=== PATIENT | female | born 1975 | race Caucasian/White ===

== ENCOUNTER 2016-07-09 18:41 | Emergency (ER) | payer OTHER ==
[2016-07-09 18:49] VITALS: BP 155/73
[2016-07-09] MEDS ORDERED: KETOROLAC 60 MG/2 ML VIAL IM STA (20:24)
--- NOTE | 2016-07-09 20:27 | ED Physician Documentation ---
PD HPI LOWER EXT INJURY - Stated complaint Stated Complaint: R KNEE PAIN - Chief complaint Chief Complaint: Ext Problem - History obtained from History obtained from: Patient - History of Present Illness PD HPI LOW EXT INJURY LOCATION: Right, Knee Timing - details: Gradual onset, Waxing and waning Pain level max: 8 Pain level now: 7 Improved by: Rest Worsened by: Moving, Palpating, Other (walking) Associated symptoms: No: Weakness, Numbness, Tingling, Swelling Contributing factors: No: Prior ortho surgery, Prosthetic joint, Work related Similar symptoms before: Diagnosis (knee pain) - Additional information Additional information: Patient is a 40 yo F with R knee pain for 3 years, gradually worsening over the past few weeks. today stood up and "felt a pop" now has increasing pain. States painful to walk. Took tylenol today. Review of Systems Constitutional: denies: Fever, Chills GI: denies: Nausea, Vomiting : denies: Now EGA Musculoskeletal: denies: Back pain Neurologic: denies: Focal weakness, Numbness PD PAST MEDICAL HISTORY - Past Medical History Past Medical History: Yes Endocrine/Autoimmune: Type 1 diabetes - Past Surgical History Past Surgical History: Yes /[employer]: section, Hysterectomy - Present Medications Home Medications: Ambulatory Orders Medication Instructions Recorded Confirmed Ascorbic Acid [Vitamin C] 1,000 mg PO DAILY 01/24/15 07/09/16 Cholecalciferol (Vitamin D3) 2,000 unit PO DAILY 01/24/15 07/09/16 [Vitamin D] Insulin Lispro [Humalog] 70 unit SQ DAILY 01/24/15 07/09/16 Lisinopril 10 mg PO DAILY 01/24/15 07/09/16 Multivitamin [Multi-Day Vitamins] 1 each PO DAILY 01/24/15 07/09/16 Vitamin B Complex [B Complex] 1 each PO DAILY 01/24/15 07/09/16 Meloxicam [Mobic] 7.5 mg PO BID PRN #20 tablet 07/09/16 - Allergies Allergies/Adverse Reactions: Allergies Allergy/AdvReac Type Severity Reaction Status Date / Time hydrocodone AdvReac Nausea Verified 07/09/16 18:50 tramadol AdvReac Diaphoresis Verified 07/09/16 19:42 - Social History Does the pt smoke?: No Smoking Status: Former smoker Does the pt drink ETOH?: Yes Does the pt have substance abuse?: No - Immunizations Immunizations are current?: Yes - POLST Patient has POLST: No PD ED PE NORMAL - Vitals Vital signs reviewed: Yes - General General: Alert and oriented X 3, No acute distress - Derm Derm: Warm and dry - Extremities Extremities: Other (R knee - TTP along the medial joint line. Limited ROM 2/2 pain, but has approx 80% normal ROM. No effusion. ACL, MCL, PCL, LCL intact. Unable to tolerate meniscus testing. ) - Neuro Neuro: Alert and oriented X 3 - Psych Psych: Normal mood, Normal affect Results - Vitals Vitals: Vital Signs - 24 hr 07/09/16 18:47 Temperature 36.4 C L Heart Rate 82 Respiratory 18 Rate Blood Pressure 155/73 H O2 Saturation 98 Oxygen O2 Source Room air - Rads (name of study) R knee xray Radiology: Prelim report reviewed, EMP read contemporaneously, See rad report ( Medial compartment right knee arthritis. No fracture. Normal alignment. No effusion. ) PD MEDICAL DECISION MAKING - ED course Complexity details: reviewed results, re-evaluated patient, considered differential, d/w patient, d/w family ED course: Patient is a 40-year-old female who presents to the emergency department with right knee pain. Unclear etiology. Does appear to have some compartmental arthritis on x-ray. Possible meniscus injury on examination. Placed in a knee immobilizer and on crutches for comfort. Will prescribe nonsteroidal anti- inflammatories for pain and have her follow-up with her doctor for further evaluation and care. Patient counseled regarding signs and symptoms for which I believe and urgent re-evaluation would be necessary. Patient with good understanding of and agreement to plan and is comfortable going home at this time This document was made in part using voice recognition software. While efforts are made to proofread this document, sound alike and grammatical errors may occur. Departure - Departure Disposition: 01 Home, Self Care Clinical Impression: Knee sprain Qualifiers: Encounter type: initial encounter Involved ligament of knee: unspecified ligament Laterality: left Qualified Code(s): S83.92XA - Sprain of unspecified site of left knee, initial encounter Condition: Good Instructions: ED Meniscal Injury Knee Poss Follow-Up: BENNY LAUGHLIN MD [Primary Care Provider] - Within 1 week Prescriptions: Meloxicam [Mobic] 7.5 mg PO BID PRN #20 tablet PRN Reason: pain Comments: Wear the knee immobilizer for the next 2-3 days. Then take your knee out and start to gently move it. You may bear weight as tolerated, but will likely be more comfortable on crutches for the next 2-3 days. I suspect that you have an injury of your meniscus. You should follow-up with your doctor for further evaluation and care. I do not see any abnormalities on your knee x-ray today. Discharge Date/Time: 07/09/16 21:40
[2016-07-09] MEDS ORDERED: KETOROLAC 60 MG/2 ML VIAL ONE (20:33)
--- NOTE | 2016-07-09 21:16 | XRAY Preliminary Report ---
Exam: XR Knee 4 View RT IMPRESSION: 1. Medial compartment right knee arthritis. 2. No fracture. Normal alignment. No effusion. [facility] SITE ID: [id number]
--- NOTE | 2016-07-09 21:30 | XRAY Report ---
EXAM: RIGHT KNEE RADIOGRAPHY EXAM DATE: 07/09/2016 08:51 PM. CLINICAL HISTORY: Wolverine a pop in right knee, tenderness medial joint line. COMPARISON: None. TECHNIQUE: 3 views. FINDINGS: Bones: Normal. No fractures or bone lesions. Joints: Mild to moderate narrowing of the medial compartment of the right knee. No dislocation. No ef fusion. Soft Tissues: Normal. No soft tissue swelling. IMPRESSION: 1. Medial compartment right knee arthritis. 2. No fracture. Normal alignment. No effusion. [facility] Referring Provider Line: [phone] SITE ID: [id number]
== END 2016-07-09 21:40 | disposition home or self-care (01) ==
LOC: ED 18:41
DX: S83.91XA Sprain of unspecified site of right knee, initial encounter (principal); X58.XXXA Exposure to other specified factors, initial encounter; M17.11 Unilateral primary osteoarthritis, right knee; E10.9 Type 1 diabetes mellitus without complications; Z79.4 Long term (current) use of insulin; Z87.891 Personal history of nicotine dependence
CPT/HCPCS: 96372; 99283